=== PATIENT | male | born 1995 | race African-American/Black ===

== ENCOUNTER → 2019-02-20 | Outpatient (CLI) | payer OTHER ==
--- NOTE | 2019-02-20 10:23 | KCIC ---
Examination: MRI of the left knee without contrast HISTORY: History of left knee pain, effusion. Lateral joint tenderness COMPARISON: None available TECHNIQUE: Multiplanar, multisequence MR imaging of the left knee was performed without contrast Findings: The anterior cruciate ligament, posterior cruciate ligament appear intact. The medial meniscus appears intact. There is a bucket-handle tear of the lateral meniscus with displaced avulsed posterior horn flipped toward the intercondylar notch and anterior compartment with a double anterior horn sign. The medial collateral ligament appears intact the lateral collateral ligamentous complex including the fibular collateral ligament, biceps femoris tendon, popliteus tendon appear intact graft small knee joint effusion is identified. The extensor mechanism is intact. The medial retinaculum, lateral retinaculum appear intact. There is deep fissuring of cartilage identified in the posterior weightbearing portion of the lateral compartment with small subchondral cystic changes. IMPRESSION: 1. Bucket-handle tear of the lateral meniscus with displaced avulsed posterior horn flipped toward the intercondylar notch and anterior compartment with a double anterior horn sign. 2. Small knee joint effusion. 3. Grade I chondromalacia lateral compartment. Electronically signed by: Panfilo Paige MD (02/20/2019 10:20 AM) [id number]
== END | disposition home or self-care (01) ==
LOC: KCIC MRI 08:11
PROVIDERS: ATTEND Orthopaedic Surgery
DX: S83.252A Bucket-handle tear of lateral meniscus, current injury, left knee, initial encounter (principal); M25.462 Effusion, left knee; M94.262 Chondromalacia, left knee; X58.XXXA Exposure to other specified factors, initial encounter; Y93.89 Activity, other specified; Y92.89 Other specified places as the place of occurrence of the external cause; Y99.8 Other external cause status
CPT/HCPCS: 73721